=== PATIENT | male | born 2000 | race Hispanic/Latino ===

== ENCOUNTER 2022-10-28 15:45 | Emergency (ER) | payer SELFPAY ==
[2022-10-28 15:47] VITALS: BP 122/68; PULSE 66; RESP 18; TEMP 36.3; O2SAT 100; BMI 23.6
--- NOTE | 2022-10-28 15:59 | CT_ITS ---
STUDY: CT ABDOMEN AND PELVIS WITH CONTRAST - URINARY TRACT REASON FOR EXAM: Male, 21 years old. Abdominal pain X 15 DAYS RADIATION DOSAGE (If Supplied By Facility): CTDIvol = ( 9.46 ) mGy, DLP = ( 443.42 ) mGycm TECHNIQUE: IV 100mL Isovue-370 was administered. Transaxial images were obtained from the dome of the diaphragm to the symphysis pubis subsequent intravenous contrast administration. Multiplanar coronal and sagittal images were reformatted. Individualized Dose Optimization Techniques Were Used For This CT. COMPARISON: No relevant prior comparison study available FINDINGS: The visualized lung bases are unremarkable. The visualized portions of the heart are within normal limits. Normal liver. Normal gallbladder and extrahepatic biliary system. Normal spleen. Normal pancreas. Normal bilateral adrenal glands. Normal visualized stomach. Normal small intestine. There are multiple colonic diverticula consistent with diverticulosis. The colon is incompletely distended. There is mild circumferential wall thickening of the colon. The appendix is visualized and appears normal. Normal abdominal aorta. No retroperitoneal adenopathy. Normal right kidney. Normal left kidney. Normal urinary bladder. Normal abdominal wall. Normal osseous structures. CT/Abdomen/Pelvis W IV Cont ONLY IMPRESSION: Circumferential wall thickening of the colon, this maybe partially secondary to its incompletely distended state however cannot exclude colitis. Colonic diverticulosis. Electronically Signed: Alicia Shepard MD at 16:51 EDT ,
[2022-10-28] MEDS: 0.9% Normal Saline (1000mL) 1,000 ML 1000 ML IV (16:17)
[2022-10-28] MEDS: Ketorolac 15 MG/ML Vial IV (16:17)
[2022-10-28] MEDS: Ondansetron 4 MG/2 ML Vial IV (16:18)
[2022-10-28 16:28] LABS: Absolute Lymphocyte Count 3.05 X10^3/uL (0.83-4.51); Absolute Neutrophil Count 2.8 X10^3/uL (2.0-7.7); Basophil# 0.06 X10^3/uL; Basophil% 0.9 % (0-1); Eosinophil# 0.19 X10^3/uL; Eosinophils% 2.8 % (0-5); Hematocrit 48.8 % (40-54); Hemoglobin 16.3 g/dL (13.0-16.5); Lymphocyte # 3.05 X10^3/ul (0.83-4.51); Lymphocyte % 44.4 % (19-41); Mean Corp Hgb Conc 33.4 g/dL (32-36); Mean Corpuscular Hgb 28.7 pg (27.0-32.0); Mean Corpuscular Volume 86.1 fL (80-94); Mean Platelet Vol. 9.3 fl (6.2-12.0); Monocyte# 0.81 X10^3/uL; Monocyte% 11.8 % (0-10); NRBC Flagged by Analyzer 0 % (0-5); Neutrophil # 2.75 X10^3/uL (2.7-7.7); Platelet Count 376 K/mm3 (150-450); RBC Distribution Width SD 37.8 fl (35.1-43.9); Red Blood Count 5.67 M/mm3 (4.6-6.2); White Blood Count 6.9 K/mm3 (4.4-11.0)
--- NOTE | 2022-10-28 16:29 | EX.ED.DYSGE1 ---
HPI History of Present Illness Chief Complaint: Abd Pain Narrative Narrative: Patient is a 21-year-old male that is Japanese-speaking, patient is with his sister who is translating for him. Patient presents to the emergency department with 15 days of lower abdominal pain and bloating. Per the patient, the patient is having difficulty working, patient states that his stomach will go down and then immediately he will get significant pain, and bloating to his lower abdomen. He does state to have nausea however no vomiting. He denies any blood in his stool or vomit. Denies any sick contacts. Denies any recent biotic use. Denies any abdominal surgeries. PFSH [facility] Home Medications famotidine 20 mg tablet (Pepcid) 20 mg PO BID #30 tabs 10/28/22 [Rx Last Taken Unknown] Allergy/AdvReac Type Severity Reaction Status Date / Time No Known Allergies Allergy Verified 10/28/22 15:47 ROS ROS ED ROS Narrative Constitutional: Negative for fever, chills, weight loss, weakness Eyes: Negative for vision loss, vision change, double vision ENT: Negative for any sore throat, ear pain, congestion Cardiovascular: Negative for any chest pain, tightness, palpitations Respiratory: Negative for any cough, sputum production, hemoptysis, dyspnea, dyspnea on exertion, orthopnea Gastrointestinal: Negative for any vomiting, diarrhea, constipation, blood in stool, blood in vomit. Positive for abdominal pain, bloating : Negative for any urinary frequency, dysuria, retention, blood in urine Muscle skeletal: Negative for any muscle joint pain, stiffness, myalgias, arthralgias, neck pain, back pain Neurological: Negative for any headache, syncope, numbness or tingling, dizziness Skin: Negative for any rashes, lumps, itching, abrasions, lacerations Psychiatric: Negative for any depression, anxiety, stress, suicidal ideation, homicidal ideation Hematologic: Negative for any easy bruising, excessive bruising, easy bleeding Allergies: Negative for any eczema, hives, rash EXAM Physical Exam Narrative Exam Narrative: Vital signs reviewed. HEET: Head normocephalic atraumatic, TMs clear bilaterally. Posterior pharynx is clear, moist mucous membranes. Nares clear bilaterally. Neck: Supple with no lymphadenopathy or tenderness. No signs of meningismus, negative jolt sign. Cardiac: Regular rate and rhythm no murmurs gallops or rubs, equal peripheral pulses bilaterally. Respiratory: Lungs clear to auscultation bilaterally. No chest tenderness. Abdomen: Soft. No abdominal bruit or pulsatile masses. No hepatosplenomegaly. Patient lower abdomen is bloated, it is soft, there is no peritoneal signs. Active bowel sounds in all quadrant. Extremities: No peripheral edema, no signs of gross trauma or deformity. Active full range of motion of all extremities. Neuro: Cranial nerves II through XII intact, no focal neurological deficits. Skin: Clean dry and intact with no rash, purpura, petechiae, vesicles or pustules. Backs/flank: No CVA tenderness, no midline spinal tenderness, no deformity. Psych: Normal mood and affect. No SI, HI or acute psychosis. Const Vital Signs: 10/28/22 15:47 Temperature 97.3 F L Temperature Source Temporal Pulse Rate 66 Respiratory Rate 18 Blood Pressure 122/68 H Blood Pressure Mean 86 Pulse Ox 100 Oxygen Delivery Method Room Air MDM MDM Lab Data Labs: Laboratory Results - last 24 hr 10/28/22 16:20 WBC 6.9 RBC 5.67 Hgb 16.3 Hct 48.8 MCV 86.1 MCH 28.7 MCHC 33.4 RDW Std Deviation 37.8 RDW Coeff of Jordyn 12.0 Plt Count 376 MPV 9.3 Immature Gran % (Auto) 0.100 Neut % (Auto) 40.0 L Lymph % (Auto) 44.4 H [place] % (Auto) 11.8 H Eos % (Auto) 2.8 Baso % (Auto) 0.9 Absolute Neuts (auto) 2.8 Absolute Lymphs (auto) 3.05 Nucleated RBC % 0 Sodium 136 Potassium 3.4 L Chloride 104 Carbon Dioxide 27.0 Anion Gap 5 BUN 14 Creatinine 0.76 Estim Creat Clear Calc 131.50 Est GFR (MDRD) Af Amer 161 Est GFR (MDRD) Non-Af 133 BUN/Creatinine Ratio 18.3 Glucose 122 H Calcium 9.4 Total Bilirubin 0.40 AST 26 ALT 34 Alkaline Phosphatase 126 H Total Protein 8.0 Albumin 4.1 Globulin 3.9 Albumin/Globulin Ratio 1.1 Lipase 31 Radiography Diagnostic Testing: Clinical Impression(s) from Imaging Studies Abdomen/Pelvis CT 10/28/22 15:59 IMPRESSION: Circumferential wall thickening of the colon, this maybe partially secondary to its incompletely distended state however cannot exclude colitis. Colonic diverticulosis. Electronically Signed: Alicia Shepard MD at 16:51 EDT , Treatment and Re-Evaluation :: Patient appears generally well, patient appears nontoxic, vital signs are stable. Patient presents to the emergency department with complaints of 15 days of abdominal pain, abdominal bloating that is intermittent. Patient did receive a full abdominal work-up concerning for any bowel obstruction, diverticulitis, appendicitis, colitis. Patient's laboratory values showed normal CBC, patient's chemistries were unremarkable. Patient received a CT scan of the abdomen pelvis with IV contrast, this showed circumferential wall thickening of the colon, this may be partially secondary to its completely distended state however cannot exclude colitis however there is no obvious signs of colitis. Patient has no infectious symptoms, no diarrhea. Patient placed on Pepcid twice a day for 3 weeks. He will use a food diary. He will follow-up outpatient. All questions answered, patient stable for discharge. Discharge Plan Triage Chief Complaint: Abd Pain ED Midlevel Provider: Reese Morris ED Provider: Norbert Martinez Dx/Rx/DC Orders Clinical Impression: Abdominal pain Instructions: Abdominal Pain Prescriptions: New famotidine [Pepcid] 20 mg tablet 20 mg PO BID Qty: 30 0RF Primary Care Provider: Care Physician,No Primary Referrals: Dank Flowers DO [Med Staff - Active Staff] - Care Physician,No Primary [Primary Care Provider] - Disposition Disposition: Home, Self Care
[2022-10-28 16:50] LABS: ALB/GLOB Ratio 1.1 RATIO (0.9-2.4); AST(SGOT) 26 U/L (15-37); Alanine Aminotransfer ALT/SGPT 34 U/L (16-61); Albumin, Serum 4.1 g/dL (3.2-5.0); Alkaline Phosphatase 126 U/L (45-117); Anion Gap 5 (5-15); BUN 14 mg/dL (7-18); BUN/Creat Ratio 18.3 RATIO (10-20); Calcium,Total 9.4 mg/dL (8.5-10.1); Chloride 104 mmol/L (98-107); Creatinine, Serum 0.76 mg/dL (0.70-1.30); EST Glomerular Filtration Rate 133 mL/min (>60); Est Glom Filt Rate - Afr Amer 161 mL/min (>60); Globulin 3.9 g/dL (2.2-4.2); Glucose 122 mg/dL (74-106); Lipase 31 U/L (13-75); Potassium 3.4 mmol/L (3.5-5.1); Sodium Level 136 mmol/L (136-145)
== END 2022-10-28 18:20 | disposition home or self-care (01) ==
PROVIDERS: Nurse Practitioner; Emergency Provider Emergency Medicine; Visit Provider Emergency Medicine
DX: R10.9 Unspecified abdominal pain (principal)
CPT/HCPCS: 74177; 80053; 83690; 85025; 96361; 96374; 96375; 99283; J7030; Q9967; A4216; J2405